=== PATIENT | female | born 1975 | race Caucasian/White ===

== ENCOUNTER 2021-10-17 20:53 | Emergency (ER) | payer OTHER ==
[2021-10-17 21:52] LABS: BASOPHIL 0.5 % (0-2); EOSINOPHIL 0.2 % (0-5); HGB 14.2 g/dl (12.5-16.0); LYMPHOCYTE 22.4 % (15-48); MCH 30.6 pg (25.0-31.0); MCV 92.7 fL (78.0-100.0); MONOCYTE 8.4 % (0-12); MPV 10.7 fL (6.0-9.5); NEUTROPHIL 68.3 % (41-80); NRBC 0; PLT 194 K/uL (150-400); RBC 4.64 M/uL (4.20-5.40); RDW 13.5 % (11.5-14.0); WBC 4.3 K/uL (4.0-10.5)
[2021-10-17 22:09] LABS: ALBUMIN 3.2 g/dL (3.4-5.0); BILIRUBIN - TOTAL 0.3 mg/dL (0.2-1.0); CREATININE 0.52 mg/dL (0.51-0.95); GLOBULIN (CALCULATION) 3.7 g/dL; TOTAL PROTEIN 6.9 g/dL (6.4-8.2)
[2021-10-17 22:27] LABS: CORONAVIRUS 2019 SARS-COV-2 NEGATIVE (NEGATIVE); INFLUENZA A NAA NEGATIVE (NEGATIVE)
[2021-10-17 22:56] LABS: BILIRUBIN NEGATIVE (NEGATIVE); BLOOD NEGATIVE Ery/uL (NEGATIVE); CLARITY CLEAR (CLEAR); COLOR YELLOW (YELLOW); GLUCOSE (U) NORMAL (NORMAL); LEUKOCYTES NEGATIVE Leu/uL (NEGATIVE); NITRITE NEGATIVE (NEGATIVE); PROTEIN NEGATIVE (NEGATIVE); UROBILINOGEN 0.2 mg/dL (0.2-1.0); pH 7.5 (5.0-9.0)
[2021-10-18] MEDS ORDERED: PHENERGAN25 M1 PO (00:12)
[2021-10-18] MEDS ORDERED: ONDANSETRON ODT4 MG PO (00:12)
[2021-10-18] MEDS ORDERED: KLOR-CON M2020 MEQ PO (00:13)
== END 2021-10-18 00:35 | disposition home or self-care (01) ==
LOC: FER 20:53
PROVIDERS: Internal Medicine
DX: K52.9 Noninfective gastroenteritis and colitis, unspecified (principal); F17.210 Nicotine dependence, cigarettes, uncomplicated; Z20.822 Contact with and (suspected) exposure to COVID-19
CPT/HCPCS: 36415; 80053; 81003; 83690; 85025; J2060; J2405; J2550; J3475; J3480; J7050; J7120; Q0169; U0002